=== PATIENT | male | born 1975 ===

== ENCOUNTER 2017-08-20 19:21 | Emergency (ER) | payer SELFPAY ==
[2017-08-20 19:27] VITALS: TEMP 98.4
--- NOTE | 2017-08-20 19:43 | C.PDOC ---
History Of Present Illness 42 year old healthy male who presents to the ER for an evaluation of left shoulder pain that has been going on for "a long time" that has worsened over the last 3 days. Patient states pain is localized over left shoulder and worsens with movement. Patient admits he has a physically active job; but otherwise denies previous injury to the left shoulder, deformities, denies weakness, sensory/vascular deficits, chest pain, or SOB, cough, dyspnea, diaphoresis, palpitation or any other active complaints. Ambulate to Ed for evaluation, not in any apparent distress. Time Seen by Provider: 08/20/17 19:32 Chief Complaint (Nursing): Upper Extremity Problem/Injury History Per: Patient History/Exam Limitations: no limitations Onset/Duration Of Symptoms: Days Current Symptoms Are (Timing): Still Present Quality: "Pain" Exacerbating Factor(s): Movement Recent travel outside of the [place]: No Past Medical History Reviewed: Historical Data, Nursing Documentation, Vital Signs Vital Signs: Last Vital Signs Temp 98.4 F 08/20/17 19:24 Pulse 111 H 08/20/17 19:24 Resp 20 08/20/17 19:24 BP 145/88 08/20/17 19:24 Pulse Ox 99 08/20/17 19:54 - Medical History PMH: No Chronic Diseases Surgical History: No Surg Hx Family History: States: Unknown Family Hx - Social History Hx Alcohol Use: No Hx Substance Use: No - Immunization History Hx Tetanus Toxoid Vaccination: No Hx Influenza Vaccination: No Hx Pneumococcal Vaccination: No Review Of Systems Cardiovascular: Negative for: Chest Pain Respiratory: Negative for: Shortness of Breath Musculoskeletal: Positive for: Shoulder Pain Neurological: Negative for: Weakness, Numbness, Other (Sensory deficits) Physical Exam - Physical Exam Appears: Non-toxic, No Acute Distress Skin: Normal Color, Warm, Dry, No Rash, No Ecchymosis Neck: Normal ROM, Supple Cardiovascular: Rhythm Regular, No Murmur, No JVD Respiratory: No Decreased Breath Sounds, No Accessory Muscle Use, No Stridor, No Wheezing Extremity: Normal ROM (Left UE), Tenderness (Diffuse over left shoulder w/ mild crepitus on ROM), No Deformity, No Swelling Pulses: Left Radial: Normal, Right Radial: Normal Neurological/Psych: Oriented x3, Normal Speech, Normal Cognition, Normal Motor, Normal Sensation, Normal Reflexes ED Course And Treatment ECG: Interpreted By Me, Viewed By Me ECG Rhythm: Sinus Rhythm ECG Interpretation: Normal Interpretation Of ECG: SR@98/min, NAD, no acute T wave or ST-T changes. O2 Sat by Pulse Oximetry: 99 (Room air) Pulse Ox Interpretation: Normal - Other Rad Left shoulder X-Ray: Interpreted by Me, Viewed By Me Interpretation: no acute fx or dislocation Progress Note: EKG and left shoulder x-ray ordered. Tramadol and prednisone administered. On re-evaluation, pt is afebrile, hemodynamicaly stable. Non- toxic. Neck: SUpple. Lungs: CTA B/L, BS equal B/L. CVS: (+)S1S2, reg. LUE: exam c/w shoulder tendonitis. FRAOM, no neuorvascular deficits, no defomrity, no skin changes. Imaging review (-) acute abnoramlities. SLing applied to Left arm. Pt received anti-inf, analgesics. Pt advised, ref. to f/u with Ortho in 2-3 days for re-eavl. return if any new hcanges. Disposition Counseled Patient/Family Regarding: Studies Performed, Diagnosis, Need For Followup, Rx Given - Disposition Referrals: [facility] [Outside] Bill Rushing MD [Staff Provider] - Disposition Time: 20:02 Condition: STABLE Additional Instructions: Consider light duty to Left shoulder, sling for 1-2 weeks Take medication as prescribed Follow up with [facility] located at [facility] in 2- 3 days for re-evaluation. Return to ED if any worsening or new changes. Prescriptions: Prednisone [Deltasone] 20 mg PO DAILY #3 tablet traMADol [Ultram] 50 mg PO TID #7 tab Instructions: Tendinitis (ED), Shoulder Pain (ED) Forms: [facility] ([employer]), Work Excuse - Clinical Impression Clinical Impression: Shoulder tendonitis - Scribe Statement The provider has reviewed the documentation as recorded by the Scribkylah Mike All medical record entries made by the Scribe were at my direction and personally dictated by me. I have reviewed the chart and agree that the record accurately reflects my personal performance of the history, physical exam, medical decision making, and the department course for this patient. I have also personally directed, reviewed, and agree with the discharge instructions and disposition.
[2017-08-20 20:14] VITALS: BP 110/75; PULSE 74; RESP 16; O2SAT 98
--- NOTE | 2017-08-21 09:43 | RAD ---
PROCEDURE: Radiographs of the Left Shoulder HISTORY: pain COMPARISON: No prior. FINDINGS: BONES: Normal. No fracture. JOINTS: Normal. Glenohumeral and acromioclavicular joints preserved. No significant osteoarthritis. SOFT TISSUES: Normal. OTHER FINDINGS: None. IMPRESSION: No evidence of acute displaced fracture nor dislocation.
== END 2017-08-20 20:14 | disposition home or self-care (01) ==
LOC: C.ER 19:21
DX: M75.92 Shoulder lesion, unspecified, left shoulder (principal)